=== PATIENT | female | born 1970 | race African-American/Black ===

== ENCOUNTER 2021-09-25 11:24 | Outpatient (CLI) | payer OTHER, SELFPAY ==
--- NOTE | 2021-09-25 11:32 | ECG_ITS ---
Measurements Intervals [place] Rate: 66 P: 38 NM: 176 QRS: 1 QRSD: 90 T: -13 QT: 417 QTc: 439 Interpretive Statements SINUS RHYTHM DELAYED PRECORDIAL R/S TRANSITION LOW QRS VOLTAGE IN PRECORDIAL LEADS BORDERLINE ST-T WAVE ABNORMALITY- inferior leads BORDERLINE ECG Electronically Signed On 09-25-2021 11:58:12 [employer] by Victoriano Hernandez D.O.
[2021-09-25 12:03] LABS: Anion Gap 8 mmol/L (8-16); Blood Urea Nitrogen 10 mg/dL (7-17); Calcium 9.5 mg/dL (8.4-10.2); Carbon Dioxide 24 mmol/L (22-30); Chloride 103 mmol/L (98-107); Estimated Glomerular Filt Rate > 60; Glucose 108 mg/dL (65-110); Potassium 3.9 mmol/L (3.4-5.0); Sodium 135 mmol/L (137-145)
== END 2021-09-25 11:25 | disposition home or self-care (01) ==
LOC: ANHSURGERY 11:31
PROVIDERS: Anesthesiology; PCP Internal Medicine; Visit Provider Obstetrics & Gynecology
DX: Z01.818 Encounter for other preprocedural examination (principal); I10 Essential (primary) hypertension
CPT/HCPCS: 36415; 80048; 93005

== ENCOUNTER 2021-09-27 01:58 | Day surgery (SDC) | payer OTHER, SELFPAY ==
--- NOTE | 2021-09-25 09:28 | PC.NURSE ---
Report to the Outpatient Waiting Room, entrance under the green pavilion located off [facility], at time _1000 on date _09/27/21 . OR Time: 1200 . - You and your visitor will be asked a series of questions to screen for COVID 19 for your protection. - A mask is required within the hospital. - Only one visitor is allowed at this time. Patient visitors will be guided where to wait when not with patient. Preoperative COVID Testing Requirements: No COVID Test needed if: (proof is required; if not received patient will have Rapid Test prior to entry) - Patient has received COVID Vaccine at least 14 days prior to procedure date or - Patient has positive COVID test result within last 90 days of surgery date. COVID Test needed if above criteria is not met If not COVID vaccinated a COVID test must be conducted within 72 hours of surgery and patient is asked to isolate self from time of testing until procedure. You will go to the [facility] for your COVID testing. The [facility] site is located at the corner of [address] [facility]. You will only be called if COVID results are positive and your surgeon may reschedule your elective surgery date. Patients may have clear liquids (water, carbonated beverages, clear teas, apple juice) until 3 hours prior to surgery with a maximum of 20 ounces. - No food from midnight until time of surgery - Infants may have breast milk until 4 hours before surgery, infant formula 6 hours prior to surgery. - Children will be allowed to drink immediately following surgery. If applicable, please bring a bottle or sippy cup to assist with drinking. Juice, water, soda, and popsicles are readily available. For infants on formula, please bring formula the day of surgery. Pacifiers are allowed. Take the following medications with a SIP of water the morning of surgery: __BUPROPION Medications to discontinue per physician ___VITAMINS AND SUPPLEMENTS 3 DAYS PRE OP Date to take last dose__09/24/21 Please no make-up, nail mohawk, hairspray, perfume, deodorant, or body powder the day of surgery. No jewelry (including any body piercings) or valuables the day of surgery, leave them at home. Please take a shower or bath the night before, or the morning of, surgery with an antibacterial soap. Wear comfortable, loose fitting clothing. Children are encouraged to wear pajamas. - Jewelry must be removed prior to entering the operating room. Rings and piercings that are not removed may be cut off. - The hospital will not accept responsibility for valuables. - Please leave all valuables, including medications, at home the day of surgery. If you are going home after surgery, a licensed class b truck driver must drive you home. - NO public transportation without another adult. - We recommend that an adult stay with you for 24 hours following discharge. - We also recommend that you do not drive, make important decision, drink alcoholic beverages, or take any drugs that were not prescribed by your health care provider for at least 24 hours after your discharge time. For Pediatric surgeries, we recommend two adults accompany the child home (only one inside the building at this time). Follow any additional instructions given to you from your surgeon. Telephone instructions given to _PATIENT and asked if any additional questions and then verbalized understanding. Patient advised to call surgeon office or pre surgery nurse liaison [phone] if any additional questions.
[2021-09-25 09:34] VITALS: BMI 53.2
[2021-09-27] VITALS (9 sets, daily range): BP systolic 132–170; BP diastolic 64–89; PULSE 59–73; RESP 15–22; TEMP 36.5–36.6; O2SAT 95–100
[2021-09-27] MEDS: ACETAMINOPHEN 500 MG TABLET 1000 MG PO (10:37)
[2021-09-27] MEDS: LACTATED RINGERS 1,000 ML 30 ML IV CONT ×2 (10:38→12:50)
[2021-09-27] MEDS: KETOROLAC 15 MG/ML VIAL (*BKC) IV PUSH (10:40)
--- NOTE | 2021-09-27 10:55 | WPDANESEPPF ---
Anes - Initial Pre Proc Eval Procedure: Operation Date: 09/27/21 12:00 Proposed Procedures p Hysteroscopy, Fabiola Endometrial Ablation, Bilateral Laparoscopic Salpingectomy - Radu Barnes MD Date/Time: 09/27/21 10:55 Surgeon: Radu Barnes MD Pre Op Diagnosis: Uterine Fibroid Patient Data Age: 51 Gender: F Height: 1.68 m Weight: 154.9 kg Last Vital Signs Temp 36.6 C 09/27/21 10:12 Pulse 73 09/27/21 10:12 Resp 16 09/27/21 10:12 BP 156/74 H 09/27/21 10:12 Pulse Ox 100 09/27/21 10:12 Allergies Allergy/AdvReac Type Severity Reaction Status Date / Time aspirin Allergy Mild Gastrointestinal Unverified 09/27/21 10:29 Upset Home Medications Medication Instructions Recorded Confirmed Type bupropion HCl 150 mg PO QAM 09/25/21 09/27/21 History cetirizine [Zyrtec] 10 mg PO DAILY 09/25/21 09/27/21 History cholecalciferol (vitamin D3) 125 mcg PO DAILY 09/25/21 09/27/21 History cyanocobalamin (vitamin B-12) 5,000 mcg PO DAILY 09/25/21 09/27/21 History spironolactone 50 mg PO DAILY 09/25/21 09/27/21 History Patient hx anesthesia problems: none Family hx anesthesia problems: none Results Review: All pre-operative results and documents have been reviewed as part of the pre-operative evaluation. [facility] Past Medical History Medical History (Updated 09/27/21 @ 10:56 by Christian Szymanski MD) Morbid obesity DEJA (obstructive sleep apnea) Surgical History Surgical History (Updated 09/27/21 @ 10:57 by Christian Szymanski MD) H/O lymph node excision Social History Social History Smoking status: Never smoker Alcohol intake: current Alcohol use details: 2 DRINKS PER MONTH Living arrangements: with family Spiritual care concerns: No Anes - Eval Final PreProcedure Day of Procedure 09/27/21 10:55 Patient weight: morbidly obese Heart: regular rate and rhythm Lungs: clear to auscultation Airway: Mallampati scale class II Neurological: alert and oriented Last oral intake: >/= 8 hours ASA classification: III Emergent: no Anesthetic plan: proceed Anesthesia type and monitoring: general ETT and standard monitoring Results Review: All pre-operative results and documents have been reviewed as part of the pre-operative evaluation. Informed Consent: The patient's anesthetic plan and its attendant risks and benefits were discussed with the patient/family/POA. Questions were solicited and answers provided to the satisfaction of the patient/family/POA.
--- NOTE | 2021-09-27 11:49 | PM.IMHP ---
H&P: HPI History of Present Illness Date/Time: 09/27/21 11:49 51 y/o G0 presents with c/o heavy bleed and clots. US N. Desires ablation. Also permanent sterilization. Declines nonpermanent/nonsurgical methods. Chief Complaint: menorrhagia Review of Systems Review of Systems: All systems reviewed & are unremarkable except as noted in HPI and below PMFSH Past Medical History Medical History Morbid obesity DEJA (obstructive sleep apnea) Surgical History Surgical History H/O lymph node excision Social History Social History Smoking status: Never smoker Alcohol intake: current Alcohol use details: 2 DRINKS PER MONTH Living arrangements: with family Spiritual care concerns: No Meds Home Medications and Allergies Home Medications Medication Instructions Recorded Confirmed Type bupropion HCl 150 mg PO QAM 09/25/21 09/27/21 History cetirizine [Zyrtec] 10 mg PO DAILY 09/25/21 09/27/21 History cholecalciferol (vitamin D3) 125 mcg PO DAILY 09/25/21 09/27/21 History cyanocobalamin (vitamin B-12) 5,000 mcg PO DAILY 09/25/21 09/27/21 History spironolactone 50 mg PO DAILY 09/25/21 09/27/21 History Allergies Allergy/AdvReac Type Severity Reaction Status Date / Time aspirin Allergy Mild Gastrointestinal Unverified 09/27/21 10:29 Upset Vital Signs Vital Signs - 24 hr 09/27/21 10:12 Temperature 36.6 C Pulse Rate 73 Respiratory Rate 16 Blood Pressure 156/74 H Pulse Oximetry 100 Exam Const: General: cooperative and healthy appearing Resp: Effort & Inspection: normal respiratory effort Auscultation: clear to auscultation bilaterally Cardio: Rate: regular rate Rhythm: regular rhythm : External Female Exam: normal external appearance Speculum Exam - Vagina: normal appearance of the vagina Speculum Exam - Cervix: normal appearance of the cervix Bimanual exam- vagina & uterus: normal bimanual exam Bimanual Exam- Adnexa, other: normal adnexae Assessment and Plan Assessment and plan (1) Menometrorrhagia: Code(s): N92.1 - Excessive and frequent menstruation with irregular cycle Status: Acute (2) Encounter for female sterilization procedure: Code(s): Z30.2 - Encounter for sterilization Status: Acute Additional Plan 1. hscope/D*C/ablation 2. B salpingectomy
--- NOTE | 2021-09-27 11:52 | WPDHPUPDATE1 ---
History and Physical Update Update Date/Time: 09/27/21 11:52 History and Physical has been reviewed, including an updated exam of the patient. There are NO changes in the patient's condition. Risks, benefits, and alternatives have been discussed and questions answered. Patient agrees to proceed with procedure.
[2021-09-27] MEDS: ceFAZolin 3 GM/D5W 100 ML 100 ML IVPB (11:55)
--- NOTE | 2021-09-27 12:39 | PM.OP ---
Procedure Note - Brief Procedure Note - Brief Date of procedure: 09/27/21 Pre-op diagnosis: Uterine Fibroid Menometrorrhagia Undesired fertility Post-op diagnosis: same Procedure performed: 1. Hysteroscopy with uterine curettings 2. Endometrial ablation 3. Laparoscopic bilateral salpingectomy Description of procedure: Patient prepped and draped in usual manner for this procedure. Periumbilical and lower trocar sites were placed and trocars placed under direct visualization. Using the Harmonic scalpel the tubes were grasped and mesial salpinx was cauterized. Tubes removed without difficulty. There was no bleeding during this portion of procedure. Gas was allowed to escape and incisions used were then approximated using 0 Monocryl in a interrupted manner. Hysteroscopic exam was then performed with uterine curettings. As noted above there was no significant abnormalities on the endometrial cavity. Endometrial ablation was placed cavity assessment performed instrument activated. At the end the procedure good destruction was with throughout. At this point seizure was considered terminated patient was sent to recovery room in stable condition. Anesthesia: GLMA Surgeon: Radu Barnes MD Estimated blood loss (mL): 50 Drains: No Packing: No Pathology: yes Complications: No immediate complications Condition: stable Disposition: PACU Findings: 1. Uterine fibroids 2. Normal endometrial cavity without abnormality 3. Postprocedure good destruction noted throughout the endometrial cavity
== END 2021-09-27 15:10 | disposition home or self-care (01) ==
PROVIDERS: PCP Internal Medicine; Visit Provider Obstetrics & Gynecology
PROC: 0UDB8ZZ Extraction of Endometrium, Via Natural or Artificial Opening Endoscopic (ICD-10-PCS; CPT 58558; principal; 2021-09-27 12:00)
DX: N92.1 Excessive and frequent menstruation with irregular cycle (principal); Z30.2 Encounter for sterilization; D25.9 Leiomyoma of uterus, unspecified; N83.8 Other noninflammatory disorders of ovary, fallopian tube and broad ligament; G47.33 Obstructive sleep apnea (adult) (pediatric); E66.01 Morbid (severe) obesity due to excess calories; Z68.43 Body mass index [BMI] 50.0-59.9, adult
CPT/HCPCS: 58661; 58563; 36415; 80048; 88302; 88305; 93005; A9270; J0690; J1885; J2250; J3010; J7030; J7120

== ENCOUNTER 2025-02-01 13:11 | Outpatient (CLI) | payer BC, SELFPAY ==
--- NOTE | ~2025-02-01 | MM_ITS ---
EXAMINATION: MM screening johnathan BI w janie HISTORY: Screening mammogram TECHNIQUE: Craniocaudal and mediolateral oblique 3-D tomosynthesis images were obtained and synthetic 2-D images were generated. CAD analysis was submitted and interpreted. COMPARISON: 05/06/2010 BREAST PARENCHYMAL COMPOSITION:Not Dense. The breasts are almost entirely fatty FINDINGS: No suspicious mass, calcification, or architectural distortion are identified in either jovany ast to suggest malignancy. There has been no suspicious interval change. IMPRESSION: No mammographic evidence of malignancy. Recommend routine screening mammography in one year. BI-RADS Category 1: Negative Reviewed, dictated and finalized at location .
== END 2025-02-01 13:12 | disposition home or self-care (01) ==
LOC: MICIMG 13:12
PROVIDERS: PCP Internal Medicine; Visit Provider Obstetrics & Gynecology
DX: Z12.31 Encounter for screening mammogram for malignant neoplasm of breast (principal)
CPT/HCPCS: 77063; 77067